=== PATIENT | female | born 1960 | race Caucasian/White ===

== ENCOUNTER 2018-06-22 11:33 | Day surgery (SDC) | payer MEDICARE ==
[~2018-06-22] VITALS: Ht 167.6 cm; Wt 90.0 kg
--- NOTE | ~2018-06-22 | OP ---
PATIENT NAME: CANDI ROY MEDICAL RECORD: [id number] :62 LOCATION:[facility] ADMISSION DATE: SURGEON: ROSALINA MIRANDA MD DATE OF OPERATION: 06/22/2018 PROCEDURE: EGD with biopsy. WHITESMITH: Rosalina Miranda MD SCOPE: An Olympus video gastroscope. MEDICATIONS: Per TIVA. The patient received 400 mg of propofol for this procedure, IV push, O2 of 4 liters. INDICATION FOR THE PROCEDURE: Worsening symptoms of gastroesophageal reflux disease in the setting of Hicks's esophagus. FINDINGS: Informed consent was given. The patient was made comfortable with the above medications. After reaching an adequate level of sedation by slow IV push, the patient was placed on her left side. The endoscope was then advanced under direct visualization through the posterior pharyngeal area and advanced to the distal esophagus. At the distal esophagus, marked inflammation, erythema and edema and congestion, was appreciated and multiple biopsies were obtained. The patient also had a small hiatal hernia seen both on direct and retroflex views. Of note, the patient did have some rings throughout the esophagus, which could be significant for eosinophilic esophagitis and biopsies were obtained in the mid esophageal area. The stomach had only minimal inflammation throughout and at the antral area. A histopathology GIA biopsy was obtained. No ulcers or erosions were appreciated. The duodenal bulb to the second portion had mild inflammation present and a biopsy was taken in the second part of the duodenum. The scope was then withdrawn. IMPRESSION: 1. Multiple concentric rings throughout the esophagus. Biopsy taken in the mid esophagus looking for eosinophilic esophagitis. 2. Hicks's esophagus with increased inflammation, erythema, edema and congestion, biopsied. 3. Small hiatal hernia. 4. Mild gastritis, biopsied. 5. Mild duodenitis, biopsied. PLAN: 1. Continue omeprazole 20 mg p.o. q.a.m. Continue famotidine at 20 mg p.o. q.h.s. 2. Add Sucralfate 1 g p.o. q.i.d. dissolved in water and then drink. 3. Caution with anti-inflammatory drugs. 4. The patient to follow reflux precautions stringently, both dietary and positional. 5. Quit smoking. We are making the patient an appointment with Dr. Hargrove as she has had left-sided throat pain for about 6 months. She tells me she had a precancerous lesion removed from her throat in the past. Unfortunately, she refluxes OPERATIVE REPORT [id number] CANDI ROY and she continues to use tobacco products. TRANSINT:[id number] Voice Confirmation ID: [id number] DOCUMENT ID: [id number] ROSALINA MIRANDA MD at 1304 CC: ESTELA KEENAN [id number] DICTATION DATE: 06/22/18 1436 [facility] WORKER: 06/22/18 1458 [facility] 06/22/18 [facility] [address] [place] [address]
[~2018-06-22 11:33] MED LIST: AMBIEN10 MG PO; ANUSOL-HC25 MG RC; ESTRACE2 MG PO; HCTZ25 MG PO; LORTAB PO; PEPCID40 MG PO; PRILOSEC20 MG PO; VICOPROFEN 7.5/1 TAB PO
[2018-06-22 12:09] LABS: CALC OSMOLALITY 273 mosm/kg (275-300); CALCIUM 8.2 mg/dL (8.5-10.1); CARBON DIOXIDE 27.3 mmol/L (21.0-32.0); CHLORIDE - SERUM 103 mmol/L (98-107); CREATININE - SERUM 0.7 mg/dL (0.6-1.3); GLUCOSE 92 mg/dL (74-106); POTASSIUM - SERUM 3.8 mmol/L (3.5-5.1); SODIUM 137 mmol/L (136-145); UREA NITROGEN 13 mg/dL (7-18); eGFR NON AFRICAN AMERICAN > 90 mL/min (90-120)
[2018-06-22 12:16] LABS: HEMATOCRIT 41.5 % (36.0-48.0); HEMOGLOBIN 14.2 g/dL (12-16); MCH 31.3 pg (26.0-34.0); MCHC 34.2 g/dL (31.0-37.0); MCV 91.4 fL (80.0-100.0); MEAN PLATELET VOLUME 9.1 fL (7.4-10.4); RBC 4.54 10x6/uL (4.00-5.40); RDW 13.5 % (11.5-14.5); WBC 9.5 10x3/uL (4.8-10.8)
[2018-06-22 12:36] VITALS: BP 144/94; Ht 167.6 cm; Wt 90.0 kg
== END 2018-06-22 15:30 | disposition home or self-care (01) ==
LOC: D.OPS 11:33
PROVIDERS: Anesthesiology
DX: K22.2 Esophageal obstruction (principal); K22.70 Barrett's esophagus without dysplasia; K44.9 Diaphragmatic hernia without obstruction or gangrene; K29.50 Unspecified chronic gastritis without bleeding; K29.80 Duodenitis without bleeding; Z01.812 Encounter for preprocedural laboratory examination

== ENCOUNTER → 2018-11-06 08:55 | Outpatient (CLI) | payer MEDICARE ==
[2018-06-22 12:36] VITALS: BMI 32.0
[2018-11-06 10:13] LABS: BASOPHILS 0.2 % (0-2); EOSINOPHILS 1.8 % (0-7); HEMATOCRIT 43.2 % (36.0-48.0); HEMOGLOBIN 14.7 g/dL (12-16); IMMATURE GRANULOCYTES 0.4 % (0-5); LYMPHOCYTES 32.4 % (15-50); MCH 31.1 pg (26.0-34.0); MCV 91.5 fL (80.0-100.0); MEAN PLATELET VOLUME 9.3 fL (7.4-10.4); MONOCYTES 7.8 % (2-11); NEUTROPHILS 57.4 % (40-80); PLATELET COUNT 278 10x3/uL (130-400); RBC 4.72 10x6/uL (4.00-5.40); RDW 13.9 % (11.5-14.5); WBC 10.2 10x3/uL (4.8-10.8)
[2018-11-06 11:54] LABS: ERYTHROCYTE SEDIMENTATION RATE 4 mm/hr (0-30)
== END | disposition home or self-care (01) ==
LOC: D.NM 08:55
PROVIDERS: Orthopaedic Surgery
DX: M25.571 Pain in right ankle and joints of right foot (principal)

== ENCOUNTER → 2018-11-22 13:26 | Outpatient (CLI) | payer MEDICARE ==
[2018-06-22 12:36] VITALS: BMI 32.0
== END | disposition home or self-care (01) ==
LOC: D.RAD 13:26 → D.MRI 15:30 → D.RAD 11-27 11:00 → D.MRI 11-27 14:30
PROVIDERS: ATTEND Orthopaedic Surgery
DX: M25.552 Pain in left hip (principal)